=== PATIENT | male | born 1980 | race Caucasian/White ===

== ENCOUNTER 2017-04-10 17:16 | Emergency (ER) | payer SELFPAY ==
[~2017-04-10] VITALS: Ht 177.8 cm; Wt 105.0 kg
[~2017-04-10 17:16] MED LIST: CLIN1CAP6 PO; METH10CO3 PO; SULF1TAB47 PO
[2017-04-10 17:22] VITALS: BP 172/112; PULSE 82; RESP 16; TEMP 98; O2SAT 100
[2017-04-10] MEDS ORDERED: METH40TA PO (17:26)
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
--- NOTE | 2017-04-10 18:22 | RADRPT ---
EXAM DATE/TIME: 04/10/2017 17:48 [facility] COMPARISON: No previous studies available for comparison. INDICATIONS : Rib pain and shortness of breath. MEDICAL HISTORY : None. SURGICAL HISTORY : None. ENCOUNTER: Initial ACUITY: 1 day PAIN SCORE: 10/10 LOCATION: Bilateral chest Left lower ribs. FINDINGS: PA and lateral views of the chest. The lungs are clear. Cardiomediastinal silhouette within normal li mits. No evidence of pleural effusion or pneumothorax. CONCLUSION: No acute cardiopulmonary disease identified. Ellis Rose MD on April 10, 2017 at 18:19 Board Certified Radiologist. This report was verified electronically.
[2017-04-10 18:25] VITALS: BP_SYST 152; TEMP 97.8
[2017-04-10] MEDS ORDERED: IBUP1TAB7 PO (18:29)
== END 2017-04-10 18:25 | disposition home or self-care (01) ==
LOC: NEPD 17:16
DX: R07.89 Other chest pain (principal); F17.200 Nicotine dependence, unspecified, uncomplicated
CPT/HCPCS: 71020; 99283

== ENCOUNTER 2017-09-01 08:35 | Emergency (ER) | END 2017-09-01 09:38 | disposition home or self-care (01) | DX: R20.2 Paresthesia of skin (principal); R07.81 Pleurodynia; F17.200 Nicotine dependence, unspecified, uncomplicated ==